=== PATIENT | male | born 1950 | race Caucasian/White ===

== ENCOUNTER 2025-05-07 16:19 | Emergency (ER) | payer OTHER | END 2025-05-07 18:04 | disposition home or self-care (01) | LOC: JP.ED 16:19 | DX: T63.441A Toxic effect of venom of bees, accidental (unintentional), initial encounter (principal); Z79.899 Other long term (current) drug therapy | CPT/HCPCS: 99282; A9270 ==

== ENCOUNTER 2025-06-12 21:48 | Emergency (ER) | payer OTHER ==
[2025-06-12 22:06] LABS: BASOPHILS ABSOLUTE AUTO 0.07 K/uL (0.00-0.10); BASOPHILS PERCENT AUTO 0.7 % (0.1-1.3); EOSINOPHILS ABSOLUTE AUTO 0.41 K/uL (0.00-0.40); EOSINOPHILS PERCENT AUTO 4.3 % (0.0-5.4); IMMATURE GRAN ABSOLUTE AUTO 0.04 K/uL (0.00-0.23); IMMATURE GRAN PERCENT AUTO 0.4 % (0.0-0.7); LYMPHOCYTES ABSOLUTE AUTO 2.15 K/uL (0.8-3.3); LYMPHOCYTES PERCENT AUTO 22.7 % (11.4-47.7); MONOCYTES ABSOLUTE AUTO 0.79 K/uL (0.20-0.90); MONOCYTES PERCENT AUTO 8.3 % (3.3-12.6); NEUTROPHILS ABSOLUTE AUTO 6.01 K/uL (1.0-7.6); NEUTROPHILS PERCENT AUTO 63.6 % (40.0-78.1); PLATELET COUNT,PLT 319 K/uL (130-375); RED BLOOD CELL COUNT 4.49 M/uL (4.14-5.76); WHITE BLOOD CELL COUNT,WBC 9.5 K/uL (3.2-11.0)
[2025-06-12 22:22] LABS: INR 1.1
[2025-06-12 22:28] LABS: A/G RATIO 0.8 (1.2-2.2); ALANINE AMINOTRANSFERASE,ALT 22 U/L (12-78); ASPARTATE AMNIOTRANSFERASE,AST 19 U/L (15-37); BILIRUBIN TOTAL 0.4 mg/dL (0.2-1.0); BLOOD UREA NITROGEN,BUN 16 mg/dL (7-18); CARBON DIOXIDE,CO2 29 mmol/L (21-32); CHLORIDE,CL 106 mmol/L (100-108); CREATININE 1.1 mg/dL (0.8-1.3); EST CRCL DRUG DOSING (CG) 59.91 mL/min; ESTIMATED GFR 70 mL/min (>60); GLUCOSE RANDOM 105 mg/dL (74-106); POTASSIUM,K 4.1 mmol/L (3.6-5.2); PROTEIN TOTAL,TP 7.7 g/dL (6.4-8.2); SODIUM,NA 142 mmol/L (140-148); TROPONIN I HIGH SENSITIVITY 11.3 pg/mL (<=60.3)
[2025-06-12] MEDS: Iopamidol 755 Mg/ML 100 ML Bottle IV SCH (22:42)
[2025-06-13] MEDS: hydrALAZINE 20 MG/ML SDV IVPUSH ONE (03:01)
== END 2025-06-13 03:04 | disposition other institution (70) ==
LOC: JP.ED 21:48
DX: I65.22 Occlusion and stenosis of left carotid artery (principal); I10 Essential (primary) hypertension; K21.9 Gastro-esophageal reflux disease without esophagitis; Z86.16 Personal history of COVID-19
CPT/HCPCS: 36415; 70450; 70496; 70498; 80053; 82947; 84484; 85025; 85610; 93005; 93010; 96374; 99284; 99285; A9270; J0360; Q9967